=== PATIENT | female | born 1985 | race Caucasian/White ===

== ENCOUNTER 2022-10-31 13:04 | Outpatient (CLI) | payer BC, SELFPAY | END 2022-10-31 13:05 | disposition home or self-care (01) | PROVIDERS: PCP Family Medicine; Visit Provider Family Medicine | DX: Z00.00 Encounter for general adult medical examination without abnormal findings (principal); E55.9 Vitamin D deficiency, unspecified; E78.5 Hyperlipidemia, unspecified; E66.01 Morbid (severe) obesity due to excess calories; R73.03 Prediabetes | CPT/HCPCS: 80053; 80061; 82306; 84443 ==

== ENCOUNTER 2023-10-31 08:04 | Outpatient (CLI) | payer BC, SELFPAY ==
--- OUTSIDE RECORDS SUMMARY | 2023-11-01 10:07 | XMS_ITS | Clinical Summary ---
Author Organization [employer] [facility] Address [place], [place] [address] Care Team Providers Care Pipe Stem Aligner Name Role Phone Vy Brooke Gates RN, BSN Unavailable [phone] Aliza Molina MD Primary Care Provider + Allergies Active Allergy Reactions Criticality Noted Date Comments Hydrocodone-Acetaminophen Nausea And Vomiting 0 08/07/2018 Medications Medication Sig Dispensed Refills Start Date End Date Status desonide 0.05% (TRIDESILON 0.05% CREAM) 0.05 % cream Apply topically to affected area(s) 2 times daily if needed. Eyebrows and ears 08/19/2018 Active escitalopram oxalate (LEXAPRO) 20 mg tablet Take 1 tablet by mouth once daily. 0 12/30/2018 Active ketoconazole 2% shampoo (NIZORAL) 2 % shampoo APPLY TO SCALP WHILE SHOWERING 3 TO 4 TIMES WEEKLY. LEAVE IN FOR 3-5 MINUTES AND WASH OUT. 1 11/21/2018 Active VITAMIN D-3 50 mcg (2,000 unit) capsule 06/24/2019 Acti ve multivitamin capsule Take 1 capsule by mouth once daily. 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 Family History Medical History Relation Name Comments Cystic fibrosis Brother Good Health Father Diabetes Maternal Grandfather Diabetes Maternal Grandmother Celiac disease Mother Diabetes Paternal Grandfather Liver cancer Paternal Grandfather Relation Name Status Comments Brother Father Alive Maternal Grandfather Maternal Grandmother Mother Alive Paternal Grandfather Social History Tobacco Use Types Packs/Day Years Used Date Smoking Tobacco: Former Cigarettes 0.3 9 1 04/09/2007 - 02/07/2017 Smokeless Tobacco: Never Alcohol Use Standard Drinks/Week Comments Yes 0 (1 standard drink = 0.6 oz pur e alcohol) socially Sex and Gender Information Value Date Recorded Sex Assigned at Not on file Gender Identity Not on file Sexual Orientation Not on file Obstetrics History Para Term AB IAB SAB Ectopic Multiple Livin g Live Births 2 0 0 0 2 0 0 0 0 0 0 Date Outcome GA Total Labor Labor/2nd/3rd Weight Sex Type Anes PTL Zully A1 A5 Name Clin AB AB Last Filed Vital Signs Vital Sign Reading Time Taken Comments Blood Pressure 131/68 11/13/2022 9:26 AM CDT Pulse 66 11/13/2022 9:26 AM CDT Temperature 36.4 ??C (97.5 ??F) 11/13/2022 9:26 AM CD T Respiratory Rate 14 11/13/2022 9:26 AM CDT Oxygen Saturation 98% 11/13/2022 9:26 AM CDT Inhaled Oxygen Concentration - - Weight 115.9 kg (255 lb 9.6 oz) 11/13/2022 9:26 AM CDT Height 165.1 cm (5' 5) 11/13/2022 9:26 AM CDT Body Mass Index 42.53 11/13/2022 9:26 AM CDT Plan of Treatment Health Maintenance Due Date Last Done Comments Tdap 01/22/1996 Depression screening for age 12+ 1997 HIV for age 15-65 01/22/2000 Hepatitis C screening for age 18-79 2003 Tetanus booster 2005 COVID-19 vaccine series ( season) 2022 02/18/2021, 06/24/2020, 05/27/2020 Pap test for age 21-65 12/03/2022 0, 12/04/2019, 11/16/2015, Additional history exists BMI (ht and wt on same day) for age 18+ 11/14/2023 11/13/2022, 10/31/2021, 04/11/2021, Additional history exists Influenza for age 9-49 11/18/2023 Pneumococcal series for age 6-64 Aged Out No longer eligible based on patient's age to complete this topic Procedures Procedure Name Priority Date/Time Associated Diagnosis Comments EXECUTIVE ADVISOR THIN PREP PAP SCREEN IMAGED Routine 12/04/2019 10:00 AM CDT from Last 3 Months or Most Recently Relevant to Health Maintenance Results * EXECUTIVE ADVISOR THIN PREP PAP SCREEN IMAGED (12/04/2019 10:00 AM CDT) Case Report Gynecologic Cytology Report ? Case: [id number] ? Authorizing Provider: ??Celi Henley PA-C ?Collected: ? 12/04/2019 1000 ? Ordering Location: ? [facility] ?Received: ?12/05/2019 1054 ? First Screen: ?Shelly Sanchez ? Specimen: ?EXECUTIVE ADVISOR ThinPrep Vial Screening, Cervical/Vaginal ? 12/12/2019 12:56 PM CDT [facility] INTERPRETATION/ RESULT NEGATIVE FOR INTRAEPITHELIAL LESION OR MALIGNANCY (NIL) (none) 12/12/2019 12:56 PM CDT [facility] IMEN ADEQUACY Satisfactory for evaluation Endocervical component present 12/12/2019 12:56 PM CDT [facility] HPV REQUEST HPV and PAP 12/12/2019 12:56 PM CDT [facility] Date of LMP 11/20/2019 12/12/2019 12:56 PM CDT [facility] Last Pap Date 11/16/2015 12/12/2019 12:56 PM CDT [facility] Last Pap Result NIL 0 12:56 PM CDT [facility] Additional Information 12/12/2019 12:56 PM CDT [facility] Comment: Interpreted at [facility] [employer] [facility] - [address], [place] [address] Automated Review Successful 12/12/2019 12:56 PM CDT [facility] Comment:Specimen processed s uccessfully by automated meat grinder device, MBio DiagnosticsPrep Imaging System, [employer] ANCILLARY TESTING EXECUTIVE ADVISOR HPV Ordered, Please see separate report 12/12/2019 12:56 PM CDT [facility] Note The pap test is a screening technique, not a diagnostic procedure. It is used primarily to screen for squamous cancers and precursor lesions. Published studies have shown that it is subject to both false negative and false positive results. The pap test should not be used as the sole means to diagnose or exclude pre-malignant and malignant lesions. 12/12/2019 12:56 PM CDT [facility] Other (Cervical/Vagina l) 12/04/2019 10:00 AM CDT 12/05/2019 10:54 AM CDT June Kale PEREZ PATHOLOGY/CYTOLOGY [facility] [address] [place] [address], [place] from Last 3 Months or Most Recently Relevant to Health Maintenance Care Teams Pipe Stem Aligner Relationship Specialty Start Date End Date Aliza Molina MD [address] [place] [address] PCP - General Family Practice 08/05/18July, Brooke Gates RN, BSN [address] [address] Cancer Nurse Coordinator Oncology 08/05/18
== END 2023-10-31 08:05 | disposition home or self-care (01) ==
LOC: NFLDREF 11-01 10:05
PROVIDERS: PCP Family Medicine; Referring Provider Family Medicine; Visit Provider Family Medicine
DX: E55.9 Vitamin D deficiency, unspecified (principal); E78.5 Hyperlipidemia, unspecified; R73.03 Prediabetes; R79.89 Other specified abnormal findings of blood chemistry; M81.0 Age-related osteoporosis without current pathological fracture; Z13.9 Encounter for screening, unspecified
CPT/HCPCS: 80053; 80061; 82306

== ENCOUNTER 2023-11-23 10:47 | Outpatient (CLI) | payer BC, SELFPAY ==
--- OUTSIDE RECORDS SUMMARY | 2023-11-23 10:49 | XMS_ITS | Clinical Summary ---
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 [address] [place] [address] Jose Baker MD [address] [facility] [address] [place] [address] Health Maintenance Due Date Last Done Comments Tdap 01/22/1996 Depression screening for age 12+ 1997 HIV for age 15-65 01/22/2000 Hepatitis C screening for age 18-79 2003 Tetanus booster 2005 Pap test for age 21-65 12/03/2022 , 12/04/2019, 11/16/2015, Additional history exists BMI (ht and wt on same day) for age 18+ 11/14/2023 11/13/2022, 10/31/2021, 04/11/2021, Additional history exists COVID-19 vaccine series (2022- season) 2023 02/18/2021, 06/24/2020, 05/27/2020 Influenza for age 9-49 11/18/2023 Pneumococcal series for age 6-64 Aged Out No longer eligible based on patient's age to complete this topic Procedures Procedure Name Priority Date/Time Associated Diagnosis Comments MR ABDOMEN LIVER WWO Routine 11/08/2023 7:34 AM CDT Hepatic adenoma AREA FIELD MANAGER THIN PREP PAP SCREEN IMAGED Routine 12/04/2019 10:00 AM CDT from Last 3 Months or Most Recently Relevant to Health Maintenance Results * MR ABDOMEN LIVER WWO (11/08/2023 7:34 AM CDT) Anatomical Region Laterality Modality Abdomen, LIVER Magnetic Resonan ce 11/09/2023 8:46 AM CDT Narrative 11/09/2023 8:46 AM CDT For Patients: ??As a result of the Century Cures Act, medical imaging exams and procedure reports are released immediately into your electronic medical record. ??You may view this report before your referring provider. ??If you have questions, please contact your health care provider. INDICATION: Hepatic adenomas; follow-up. COMPARISON: MRI of the abdomen dating back to July 26, 2018 and the most recent study November 13, 2022. TECHNIQUE: Precontrast T1 and T2 weighted imaging; T2 haste imaging; diffusion-weighted imaging; in- and out of phase imaging; postcontrast imaging included subtraction; 20 cc of clariscan contrast was injected. FINDINGS: Noncirrhotic liver morphology. No evidence of fatty infiltration of the liver. A 4.0 x 2.1 cm lesion in segment 1 of the liver; was measuring 4.3 x 2.3 cm in October 2022, 4.2 x 2.4 cm in October 2021 and 5.5 x 3.3 cm in July 2018. A 3.8 x 3.5 cm lesion in segment 8 of the liver; was measuring 3 x 3 cm in October 2022, 3.2 x 2.6 cm in October 2021 and 5.3 x 4.2 cm in July 2018. Both these lesions have typical morphologic appearance of hepatic adenomas. No other focal hepatic pathology. No pancreatic pathology. Gallbladder appears unremarkable. No adrenal pathology. Small cortical cyst left kidney. Kidneys otherwise unremarkable. No retroperitoneal lymphadenopathy. Impression: 1. There are 2 hepatic adenomas identified in segment 1 and 8 of the liver increasing in size ??compared to October 2021 and October 2022 and clearly decreased in size when compared to July 2018. 2. Non cirrhotic liver morphology. 3. No evidence of fatty infiltration of the liver. Dictated by Christine Lehman MD @ Nov 09 2023 ??8:46AM (Electronically Signed) [email or web address] Procedure Note Christine Lehman MBBS - 11/09/2023 For Patients: As a result of the Century Cures Act, medical imagingexams and procedure reports are released immediately into your electronicmedical record. You may view this report before your referring provider.If you have questions, please contact your health care provider. INDICATION: Hepatic adenomas; follow-up. COMPARISON: MRI of the [facility] July 26, [facility] TECHNIQUE: Precontrast T1 and T2 weighted imaging; T2 haste imaging;diffusion-weighted imaging; in- and out of phase imaging; postcontrastimaging included subtraction; 20 cc of clariscan contrast was injected. FINDINGS: Noncirrhotic liver morphology. No evidence of fatty infiltration of theliver. A 4.0 x 2.1 cm lesion in segment 1 of the liver; was measuring 4.3 x 2.3cm in October 2022, 4.2 x 2.4 cm in October 2021 and 5.5 x 3.3 cm in July2018. A 3.8 x 3.5 cm lesion in segment 8 of the liver; was measuring 3 x 3 cm inA2022, 3.2 x 2.6 cm in October 2021 and 5.3 x 4.2 cm in July 2018. Both these lesions have typical morphologic appearance of hepaticadenomas. No other focal hepatic pathology. No pancreatic pathology.Gallbladder appears unremarkable. No adrenal pathology. Small corticalcyst left kidney. Kidneys otherwise unremarkable. No retroperitoneallymphadenopathy. Impression: 1. There are 2 hepatic adenomas identified in segment 1 and 8 of the liverincreasing in size compared to October 2021 and October 2022 and clearlydecreased in size when compared to July 2018. 2. Non cirrhotic liver morphology. 3. No evidence of fatty infiltration of the liver. Dictated by Christine Lehman MD @ Nov 09 2023 8:46AM (Electronically Signed) [email or web address] Jose Baker MD MR * AREA FIELD MANAGER THIN PREP PAP SCREEN IMAGED (12/04/2019 10:00 AM CDT) Case Report Gynecologic Cytology Report ? Case: [id number] ? Authorizing Provider: ??Celi Henley PA-C ?Collected: ? 12/04/2019 1000 ? Ordering Location: ? [facility] ?Received: ?12/05/2019 1054 ? First Screen: ?Shelly Sanchez ? Specimen: ?AREA FIELD MANAGER ThinPrep Vial Screening, Cervical/Vaginal ? 12/12/2019 12:56 PM CDT [facility] INTERPRETATION/ RESULT NEGATIVE FOR INTRAEPITHELIAL LESION OR MALIGNANCY (NIL) (none) 12/12/2019 12:56 PM CDT [facility] IMEN ADEQUACY Satisfactory for evaluation Endocervical component present 12/12/2019 12:56 PM CDT [facility] HPV REQUEST HPV and PAP 12/12/2019 12:56 PM CDT [facility] Date of LMP 11/20/2019 12/12/2019 12:56 PM CDT [facility] Last Pap Date 11/16/2015 12/12/2019 12:56 PM CDT [facility] Last Pap Result NIL 0 12:56 PM CDT [facility] Additional Information 12/12/2019 12:56 PM CDT [facility] Comment: Interpreted at [facility] - [address], [place] [address] Automated Review Successful 12/12/2019 12:56 PM CDT [facility] Comment:Specimen processed s uccessfully by automated supervisor endless track vehicle device, ThinPrep Imaging System, [employer] ANCILLARY TESTING AREA FIELD MANAGER HPV Ordered, Please see separate report 12/12/2019 12:56 PM CDT [facility] Note The pap test is a [...] and malignant lesions. 12/12/2019 12:56 PM CDT [facility] Other (Cervical/Vagina l) 12/04/2019 10:00 AM CDT 12/05/2019 10:54 AM CDT June Kael PEREZ PATHOLOGY/CYTOLOGY [facility] [address] [place] [address], [place] from Last 3 Months or Most Recently Relevant to Health Maintenance Care Teams Director Epidemiology Relationship Specialty Start Date End Date Aliza Molina MD [address] [place] [address] PCP - General Family Practice 08/05/18July, Brooke Gates RN, BSN [address] [address] Cancer Nurse Coordinator Oncology 08/05/18
--- NOTE | 2023-11-23 11:00 | CRLHL7_ITS ---
For Patients: As a result of the Century Cures Act, medical imaging exams and procedure reports are released immediately into your electronic medical record. You may view this report before your referring provider. If you have questions, please contact your health care provider. INDICATION: Bilateral neck pain and jaw swelling COMPARISON: None TECHNIQUE: CT soft tissue neck with IV contrast. Isovue 370, 118 cc. FINDINGS: Enlargement of the bilateral parotid glands with heterogeneous enhancement. No significant inflammatory change in the adjacent fat. There is no intraglandular ductal dilatation. No obstructing sialolith. Normal bilateral submandibular glands. Normal thyroid gland. Mildly enlarged bilateral level 2 lymph nodes measuring approximate 15 mm maximal diameter (series 3, image 32) is likely secondary to reactive changes. No other enlarged cervical lymph nodes. No supraclavicular superior mediastinal adenopathy. Nasopharynx and oropharynx are clear. No inflammation within the peripheral fat pads or retropharyngeal space. Normal thickness of the epiglottis. Normal glottis with symmetric vocal cords. Lung apices are clear. Normal alignment of the cervical spine. Cervical spondylosis. No prevertebral soft tissue swelling. Visualized paranasal sinuses and mastoid air cells are clear. IMPRESSION: 1. Enlargement of the bilateral parotid glands with heterogeneous enhancement. No intraglandular ductal dilatation. No obstructing sialolith. Findings may represent changes of sialoadenitis or Sjogren`s syndrome. Consider follow-up with MRI without and with IV gadolinium for further evaluation. 2. Normal bilateral submandibular glands. 3. Mildly prominent bilateral level 2 lymph nodes which are likely reactive. No adenopathy elsewhere. 4. Normal deep soft tissues of the neck Please note that all CT scans at this facility use dose modulation, iterative reconstruction, and/or weight-based dosing when appropriate to reduce radiation dose to as low as reasonably achievable. Dictated by Ian Burrows MD @ 11/26/2023 9:07:42 AM (Electronically Signed)
== END 2023-11-23 10:48 | disposition home or self-care (01) ==
LOC: CT 10:47
PROVIDERS: PCP Family Medicine; Visit Provider Family Medicine
DX: R22.1 Localized swelling, mass and lump, neck (principal); R59.0 Localized enlarged lymph nodes; M54.2 Cervicalgia
CPT/HCPCS: 70491; Q9967

== ENCOUNTER 2024-01-09 07:30 | Outpatient (RCR) | payer BC, SELFPAY | END 2024-03-04 13:04 | disposition home or self-care (01) | PROVIDERS: PCP Family Medicine; Visit Provider Family Medicine | DX: M54.2 Cervicalgia (principal); M54.9 Dorsalgia, unspecified; G89.29 Other chronic pain; Z51.89 Encounter for other specified aftercare | CPT/HCPCS: 97110; 97140; 97161 ==

== ENCOUNTER 2024-01-17 08:32 | Outpatient (CLI) | payer BC, SELFPAY ==
--- OUTSIDE RECORDS SUMMARY | 2024-01-17 13:16 | XMS_ITS | Clinical Summary ---
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 Encounters Date Type Department Care Team Description 12/12/2023 2:00 PM CDT Office Visit [facility] [address] [place] [address] Jose Baker MD Follow Up 12/11/2023 Travel 11/08/2023 6:15 AM CDT - 11/08/2023 11:59 PM CDT Hospital Encounter [facility] [address] [place] [address] Jose Baker MD Hepatic adenoma 11/08/2023 Travel [...] Sign Reading Time Taken Comments Blood Pressure 126/77 12/12/2023 2:01 PM CDT Pulse 73 12/12/2023 2:01 PM CDT Temperature 36.4 ??C (97.5 ??F) 12/12/2023 2:01 PM CD T Respiratory Rate 14 11/13/2022 9:26 AM CDT Oxygen Saturation 97% 12/12/2023 2:01 PM CDT Inhaled Oxygen Concentration - - Weight 112 kg (247 lb) 12/12/2023 2:01 PM CDT Height 165.1 cm (5' 5) 12/12/2023 2:01 PM CDT Body Mass Index 41.1 12/12/2023 2:01 PM CDT Plan of Treatment Health Maintenance Due Date Last Done Comments Tdap 01/22/1996 Depression screening for age 12+ 1997 HIV for age 15-65 01/22/2000 Hepatitis C screening for age 18-79 2003 Tetanus booster 2005 Pap test for age 21-65 12/03/2022 0, 12/04/2019, 11/16/2015, Additional history exists Influenza for age 9-49 11/18/2023 BMI (ht and wt on same day) for age 18+ 12/11/2024 12/12/2023, 11/13/2022, 10/31/2021, Additional history exists COVID-19 vaccine series Completed 12/06/19 24, 05/14/2023, 02/18/2021, Additional history exists Pneumococcal series for age 6-64 Aged Out No longer eligible based on patient's age to complete this topic Procedures Procedure Name Priority Date/Time Associated Diagnosis Comments MR ABDOMEN LIVER WWO Routine 11/08/2023 7:34 AM CDT Hepatic adenoma OUTSIDE FOOD SERVER THIN PREP PAP SCREEN IMAGED Routine 12/04/2019 10:00 AM CDT from Last 3 Months or Most Recently Relevant to Health Maintenance Results * MR ABDOMEN LIVER WWO (11/08/2023 7:34 AM CDT) Anatomical Region Laterality Modality Abdomen, LIVER Magnetic Resonan ce 11/09/2023 8:46 AM CDT Narrative 11/09/2023 8:46 AM CDT For Patients: ??As a result of the Cures Act, medical imaging exams and procedure [...] @ Nov 09 2023 ??8:46AM (Electronically Signed) [email or web address] Procedure Note Christine Lehman MBBS - 11/09/2023 [...] July 26, 2018 [facility] TECHNIQUE: Precontrast T1 and T2 weighted imaging; [...] @ Nov 09 2023 8:46AM (Electronically Signed) [email or web address] Jose Baker MD MR * OUTSIDE FOOD SERVER THIN PREP PAP SCREEN IMAGED (12/04/2019 10:00 AM CDT) Case Report Gynecologic Cytology Report ? Case: [id number] ? Authorizing Provider: ??Celi Henley PA-C ?Collected: ? 12/04/2019 1000 ? Ordering Location: ? [facility] ?Received: ?12/05/2019 1054 ? First Screen: ?Shelly Sanchez ? Specimen: ?OUTSIDE FOOD SERVER ThinPrep Vial Screening, Cervical/Vaginal ? 12/12/2019 12:56 PM CDT [facility] INTERPRETATION/ RESULT NEGATIVE FOR INTRAEPITHELIAL LESION OR MALIGNANCY (NIL) (none) 12/12/2019 12:56 PM CDT [facility] IMEN ADEQUACY Satisfactory for evaluation Endocervical component present 12/12/2019 12:56 PM CDT [facility] HPV REQUEST HPV and PAP 12/12/2019 12:56 PM CDT [facility] Date of LMP 11/20/2019 12/12/2019 12:56 PM CDT [facility] Last Pap Date 11/16/2015 12/12/2019 12:56 PM CDT [facility] Last Pap Result NIL 0 12:56 PM CDT [facility] Additional Information 12/12/2019 12:56 PM CDT [facility] Comment: Interpreted at [facility] - [address], [place] [address] Automated Review Successful 12/12/2019 12:56 PM CDT [facility] Comment:Specimen processed s uccessfully by automated caser shoe parts device, ThinPrep Imaging System, [employer] ANCILLARY TESTING OUTSIDE FOOD SERVER HPV Ordered, Please see separate report 12/12/2019 12:56 PM CDT [facility] Note The pap test is [...] and malignant lesions. 12/12/2019 12:56 PM CDT [facility] Other (Cervical/Vagina l) 12/04/2019 10:00 AM CDT 12/05/2019 10:54 AM CDT June Kale PEREZ PATHOLOGY/CYTOLOGY [facility] [address] [place] [address], from Last 3 Months or Most Recently Relevant to Health Maintenance Care Teams Mineral Technologist Relationship Specialty Start Date End Date Aliza Molina MD [address] [place] [address] PCP - General Family Practice 08/05/18July, Brooke Gates RN, BSN [address] [id number] Cancer Nurse Coordinator Oncology 08/05/18
== END 2024-01-17 08:33 | disposition home or self-care (01) ==
LOC: NFLDREF 13:14
PROVIDERS: PCP Family Medicine; Referring Provider Family Medicine; Visit Provider Family Medicine
DX: E78.5 Hyperlipidemia, unspecified (principal)
CPT/HCPCS: 80061

== ENCOUNTER 2024-02-07 08:55 | Day surgery (SDC) | payer BC, SELFPAY ==
[2024-02-07] VITALS (15 sets, daily range): BP systolic 119–135; BP diastolic 72–104; PULSE 63–83; RESP 14–20; TEMP 36.2–36.6; O2SAT 88–98; BMI 41.1
--- OUTSIDE RECORDS SUMMARY | 2024-02-07 08:56 | XMS_ITS | Clinical Summary ---
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 Encounters Date Type Department Care Team Description 12/12/2023 2:00 PM CDT Office Visit [facility] [address] [place] [address] Jose Baker MD Follow Up 12/11/2023 Travel 11/08/2023 6:15 AM CDT - 11/08/2023 11:59 PM CDT Hospital Encounter [facility] [address] [place] [address] Jose Baker MD Hepatic adenoma 11/08/2023 Travel [...] 73 12/12/2023 2:01 PM CDT Temperature 36.4 C (97.5 F) 12/12/2023 2:01 PM CDT Respiratory Rate 14 11/13/2022 9:26 AM CDT [...] Routine 11/08/2023 7:34 AM CDT Hepatic adenoma PLANT OPERATIONS MANAGER THIN PREP PAP SCREEN IMAGED Routine 12/04/2019 10:00 AM CDT from Last 3 Months or Most Recently Relevant to Health Maintenance Results * MR ABDOMEN LIVER WWO (11/08/2023 7:34 AM CDT) Anatomical Region Laterality Modality Abdomen, LIVER Magnetic Resonan ce 11/09/2023 8:46 AM CDT Narrative 11/09/2023 8:46 AM CDT For Patients: As a result of the Century Cures Act, medical imaging exams and procedure reports are released immediately into your electronic medical record. You may view this report before your referring provider. If you have questions, please contact your health [...] 8 of the liver increasing in size compared to October 2021 and October 2022 and clearly decreased in size when compared to July 2018. 2. Non cirrhotic liver morphology. 3. No evidence of fatty infiltration of the liver. Dictated by Christine Lehman MD @ Nov 09 2023 8:46AM (Electronically Signed) [email or web address] Procedure Note Christine Lehman MBBS - 11/09/2023 For Patients: As a result of the Cures Act, medical imagingexams and procedure reports are released immediately into your electronicmedical record. You may view this report before your referring provider.If you have questions, please contact your health care provider. INDICATION: Hepatic adenomas; follow-up. COMPARISON: [facility] the [facility] July [facility] TECHNIQUE: Precontrast T1 and T2 weighted [...] @ Nov 09 2023 8:46AM (Electronically Signed) [email or web address] Jose Baker MD MR * PLANT OPERATIONS MANAGER THIN PREP PAP SCREEN IMAGED (12/04/2019 10:00 AM CDT) Case Report Gynecologic Cytology Report Case: [id number] Authorizing Provider: Celi Henley PA-C Collected: 12/04/2019 1000 Ordering Location: [facility] Received: 12/05/2019 1054 First Screen: Shelly Sanchez Specimen: PLANT OPERATIONS MANAGER ThinPrep Vial Screening, Cervical/Vaginal 12/12/2019 12:56 PM CDT [facility] INTERPRETATION/ RESULT NEGATIVE FOR INTRAEPITHELIAL LESION OR MALIGNANCY (NIL) (none) 12/12/2019 12:56 PM CDT [facility] [employer] [facility] IMEN ADEQUACY Satisfactory for evaluation Endocervical component present 12/12/2019 12:56 PM CDT [facility] HPV REQUEST HPV and PAP 12/12/2019 12:56 PM CDT [facility] Date of LMP 11/20/2019 12/12/2019 12:56 PM CDT [facility] [employer] [facility] Last Pap Date 11/16/2015 12/12/2019 12:56 PM CDT [facility] Last Pap Result NIL 0 12:56 PM CDT [facility] Additional Information 12/12/2019 12:56 PM CDT [facility] [employer] [facility] Comment: Interpreted at [facility] - [address], [place] [address] Automated Review Successful 12/12/2019 12:56 PM CDT [facility] Comment:Specimen processed s uccessfully by automated frame expander device, nVoqPrep Imaging System, [employer] ANCILLARY TESTING PLANT OPERATIONS MANAGER HPV Ordered, Please see separate report 12/12/2019 12:56 PM CDT [facility] [employer] [facility] Note The pap test is a [...] and malignant lesions. 12/12/2019 12:56 PM CDT [facility] Other (Cervical/Vagina l) 12/04/2019 10:00 AM CDT 12/05/2019 10:54 AM CDT June Kale PEREZ PATHOLOGY/CYTOLOGY [facility] [address] [place] [address], [place] from Last 3 Months or Most Recently Relevant to Health Maintenance Care Teams Gas Usage Meter Clerk Relationship Specialty Start Date End Date Aliza Molina MD [address] [place] [address] PCP - General Family Practice 08/05/18July, Brooke Gates RN, BSN [address] [address] Cancer Nurse Coordinator Oncology 08/05/18
[2024-02-07] MEDS: SODIUM CHLORIDE 0.9 % (FLUSH) 10 ML SYRINGE IVF (09:18)
[2024-02-07 09:31] LABS: Hemoglobin* 13.9 gm/dL (12.0-16.0)
[2024-02-07 09:38] LABS: Ur HCG Qualitative* Negative (Negative)
[2024-02-07 09:43] LABS: Creatinine* 0.7 mg/dL (0.5-1.5); Est. Creatinine Clearance* 93.17; Estimated Glomerular Filt Rate 113 ml/min
--- NOTE | 2024-02-07 10:12 | W.PM.H&PU ---
History & Physical Update History & Physical Update H&P Reviewed and patient assessed: No changes noted
[2024-02-07] MEDS: 0.9 % SODIUM CHLORIDE 500 ML 500 ML 100 ML IV ×2 (10:15→12:00)
[2024-02-07] MEDS: BUPIVACAINE 0.25% 30 ML INJECTION (11:19)
[2024-02-07] MEDS: SILVER NITRATE APPLICATOR 1 EACH STICK..EA. TOPICAL (11:36)
--- NOTE | 2024-02-07 12:08 | SUR.PHASEI ---
Patient came to PACU with O2 sat of 88%, oxygen added by nasal cannula right away. Drowsy, no complaints of abdomen pain, but complaints of neck discomfort. Roll added under the neck and HOB lowered to help patient with comfort.
--- NOTE | 2024-02-07 12:08 | W.ANESCHARGE ---
Anesthesia Charges Start Date/Time Anesthesia Start Date: 02/07/24 Anesthesia Start Time: 10:32 Stop Date/Time Anesthesia Stop Date: 02/07/24 Anesthesia Stop Time: 11:54
--- NOTE | 2024-02-07 12:20 | P.GYNPRC_ITS ---
Procedure Note Date of procedure: 02/07/24 Will [facility] bill your pro fee for this procedure?: Yes Pre-op diagnosis: Menorrhagia, well managed with Mirena IUD Undesired fertility Post-op diagnosis: Same Procedure: Removal of Mirena IUD Laparoscopic bilateral salpingectomy Insertion of Mirena IUD Anesthesia: GETA Complications: None Surgeon: Yolande Pascual MD Insect Control Inspector: Telma Smalls Estimated blood loss (mL): 5 IV fluids (mL): 700 Urine Output (mL): 200 Pathology: specimen obtained, sent to pathology (Bilateral Fallopian tubes) Condition: stable Disposition: same day Findings: 1. Upon pelvic exam under anesthesia, the cervix and vagina were normal in appearance. Uterus was mobile and retroverted, of normal size and texture. There were no palpable adnexal masses. 2. Upon laparoscopy, survey of the upper abdomen revealed a normal appearance to the inferior edge of the liver, gallbladder and stomach. Bowels were grossly normal appearance, as was the appendix. Survey of the pelvis revealed normal appearance to the uterus. Bilateral tubes and ovaries were normal in appearance. The cul-de-sac and bladder reflection were normal in appearance. 3. Uterus sounds to 7.5 cm. Procedure Description: Patient was taken to the operating room with IV running. She was positioned in dorsal lithotomy position with her legs fully supported in Yellofin stirrups. General anesthesia was administered. She was prepped and draped in the usual sterile fashion. Bimanual exam was performed for the above-noted findings. Speculum was inserted. The IUD string was visualized, grasped with ring forcep and removed with gentle traction. A single-toothed uterine manipulator was inserted through the cervix into the lower uterine segment, and affixed to the anterior cervical lip. Speculum was removed. Bucio catheter was placed. Patient's legs were placed in neutral position. Attention was turned to patient's abdomen. The infraumbilical area was infiltrated with small amount of Marcaine. An infraumbilical incision was made with a scalpel and carried through to the underlying layer of fascia with a hemostat. The 5 mm Fios Kii trocar was assembled with laparoscope within, and insufflator attached. While tenting up the abdomen with the help of a Cecy clamp on the fascia, the trocar was passed through the anterior abdominal wall into the peritoneal cavity. Trocar was removed. Pneumoperitoneum was achieved. Survey of abdomen and pelvis revealed the above-noted findings. Two additional port sites were created. The first was in the patient's left lower quadrant, just superior medial to the left ASIS. The second was a hand's breath superior to and slightly medial to the first. Each was infiltrated with small amount of Marcaine prior to incision. A 5 mm incision was made at each site, making sure the large vessels were out of harm's way. A 5 mm Fios Kii port was inserted at each site, under direct visualization and without complication. The balloon on each of the three ports was inflated, holding each in place. The left tube was elevated. The blood supply was cauterized and transected with the Lookerunderbeat cautery device. Dissection was carried laterally to medially through the mesosalpinx, and the tube was ultimately cauterized and transected at the left uterine cornua. Hemostasis was noted. Left tube was removed through the port and sent to pathology. This procedure was repeated on the right side, and hemostasis was again noted. Right tube was removed the port and sent to pathology. All instruments were removed from the ports, and pneumoperitoneum was released. The ports were removed. The skin of each port site was closed with a subcuticular stitch of 4-0 Monocryl. Surgical glue was applied above this. With the patient's legs back in lithotomy position, the uterine manipulator was removed. Speculum was again inserted. Tenaculum was applied to the anterior lip the cervix. Uterus sounded to 7.5 cm. The Mirena IUD was loaded in the insertion tube and inserted to the sounded depth. The device was deployed and the insertion tube removed. The string was cut to approximately 3 cm length. Silver nitrate stick was used to obtain hemostasis. The Bucio catheter was removed. Patient tolerated procedure well and was taken to recovery area in stable condition.
[2024-02-07] MEDS: MEPERIDINE 25 MG/ML INJ 12.5 MG IVP (12:23)
--- NOTE | 2024-02-07 12:28 | W.ANESCHARGE ---
Anesthesia Charges Start Date/Time Anesthesia Start Date: 02/07/24 Anesthesia Start Time: 10:32 Stop Date/Time Anesthesia Stop Date: 02/07/24 Anesthesia Stop Time: 11:54
--- NOTE | 2024-02-07 12:32 | SUR.PHASEI ---
Patient pain level 3, calm, resting with a relaxed face. Patient meets anesthesia discharge criteria from PACU.
== END 2024-02-07 13:39 | disposition home or self-care (01) ==
LOC: OR 08:55
PROVIDERS: PCP Family Medicine; Visit Provider Obstetrics & Gynecology
PROC: (CPT 58661; principal; 2024-02-07 10:15)
DX: N92.0 Excessive and frequent menstruation with regular cycle (principal); Z30.433 Encounter for removal and reinsertion of intrauterine contraceptive device; Z30.2 Encounter for sterilization; E66.01 Morbid (severe) obesity due to excess calories; Z68.41 Body mass index [BMI] 40.0-44.9, adult; R73.03 Prediabetes
CPT/HCPCS: 58661; 58301; 58300; 00840; 36415; 81025; 82565; 85018; 86850; 86900; 86901; 88302; A9270; J0330; J0665; J1100; J1630; J1885; J2175; J2250; J2405; J2704; J3010; J3490; J7030; J7298